=== PATIENT | female | born 1970 | race Hispanic/Latino ===

== ENCOUNTER 2018-02-25 22:39 | Emergency (ER) | payer OTHER ==
[2018-02-25 23:01] VITALS: BMI 26.6
[2018-02-26] MEDS: Sodium Chloride 0.9% 1,000 ML IV STA ×2 (00:20→02:31)
[2018-02-26 00:21] LABS: BASO # 0.1 K/uL (0.0-0.2); BASO % 0.9 % (0.0-2.0); EOS # 0.1 K/uL (0.0-0.7); EOS % 0.9 % (0.0-4.0); HEMOGLOBIN 12.8 g/dL (12.0-16.0); LYMPH % 30.2 % (20.0-40.0); MEAN CELL VOLUME 93.4 fl (81.0-99.0); MEAN CORPUSCULAR HEMOGLOBIN 31.1 pg (27.0-31.0); MEAN CORPUSCULAR HGB CONC 33.3 g/dL (33.0-37.0); MEAN PLATELET VOLUME 8.1 fl (7.2-11.7); MONO # 0.7 K/uL (0.0-0.8); MONO % 6.9 % (0.0-10.0); NEUT # 6.2 K/uL (1.8-7.0); NEUT % 61.1 % (50.0-75.0); NRBC % 0.1 % (0.0-0.0); RBC 4.13 Mil/uL (3.80-5.20); RED CELL DISTRIBUTION WIDTH 13.3 % (11.5-14.5); WHITE BLOOD COUNT 10.1 K/uL (4.8-10.8)
--- NOTE | 2018-02-26 00:29 | ED PDOC ---
HPI: General Adult Time Seen by Provider: 02/25/18 23:07 Chief Complaint (Nursing): Dizziness/Lightheaded Chief Complaint (Provider): dizziness History Per: Patient History/Exam Limitations: no limitations Onset/Duration Of Symptoms: Hrs Current Symptoms Are (Timing): Better Additional Complaint(s): 47 y/o female presents for evaluation of intermittent dizziness x 1 hour. Patient states she woke up to care for her 4 year son who has night terrors, and as she was laying in bed with him she felt a "wave" of dizziness come across her head. Patient states this happened a few times, with associated generalized fatigue. Patient states the dizziness then began being worsened by positional head change. Patient states she started to panic and felt her heart racing. Patient notes symptoms to be less frequent upon arrival to ED. Denies fever, headache, extremity numbness/weakness, vision changes, neck/back pain, chest pain, shortness of breath, abdominal pain, leg pain/swelling. Past Medical History Reviewed: Historical Data, Nursing Documentation, Vital Signs Vital Signs: Last Vital Signs Temp 98.8 F 02/26/18 01:40 Pulse 90 02/26/18 01:40 Resp 13 02/26/18 01:40 BP 122/69 02/26/18 01:40 Pulse Ox 100 02/26/18 02:19 - Medical History PMH: GERD - Surgical History Surgical History: Tonsillectomy, - Family History Family History: States: No Known Family Hx - Living Arrangements Living Arrangements: With Family - Social History Current smoker - smoking cessation education provided: No Alcohol: None Drugs: Denies - Home Medications Home Medications: Ambulatory Orders Medication Instructions Recorded Meclizine [Meclizine*] 25 mg PO TID PRN #21 tab 02/26/18 Ranitidine HCl [Zantac] 150 mg PO DAILY 02/26/18 - Allergies Allergies/Adverse Reactions: Allergies Allergy/AdvReac Type Severity Reaction Status Date / Time No Known Allergies Allergy Verified 02/25/18 23:05 Review of Systems ROS Statement: Except As Marked, All Systems Reviewed And Found Negative Neurological: Positive for: Dizziness Physical Exam - Reviewed Nursing Documentation Reviewed: Yes Vital Signs Reviewed: Yes - Physical Exam Appears: Positive for: Well, Non-toxic, Uncomfortable (anxious, tearful) Head Exam: Positive for: ATRAUMATIC, NORMAL INSPECTION, NORMOCEPHALIC Skin: Positive for: Normal Color Eye Exam: Positive for: Normal appearance ENT: Positive for: Normal ENT Inspection Cardiovascular/Chest: Positive for: Regular Rate, Rhythm Respiratory: Positive for: Normal Breath Sounds Gastrointestinal/Abdominal: Positive for: Normal Exam Back: Positive for: Normal Inspection Extremity: Positive for: Normal ROM Neurologic/Psych: Positive for: 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 Negative for: Motor/Sensory Deficits, Facial Droop - Laboratory Results Result Diagrams: 02/26/18 00:00 02/26/18 00:00 - ECG ECG: Positive for: Viewed By Me (reviewed by ED attending) ECG Rhythm: Positive for: Sinus Rhythm O2 Sat by Pulse Oximetry: 100 - Progress ED Course And Treament: labs, ekg, CT head, IV fluids, PO meclizine EXAM: CT Head Without Intravenous Contrast EXAM DATE/TIME: 02/25/2018 11:43 PM CLINICAL HISTORY: 47 years old, female; Signs and symptoms; Dizziness TECHNIQUE: Axial computed tomography images of the head/brain without intravenous contrast. All CT scans at this facility use one or more dose reduction techniques, viz.: automated exposure control; ma/kV adjustment per patient size (including targeted exams where dose is matched to indication; i.e. head); or iterative reconstruction technique. Coronal and sagittal reformatted images were created and reviewed. COMPARISON: No relevant prior studies available. FINDINGS: Brain: No intracranial hemorrhage. No mass. No definite edema. Ventricles: No hydrocephalus. Bones/joints: No acute fracture. Sinuses: No acute sinusitis. Mastoid air cells: No mastoid effusion. Orbits: Unremarkable as visualized. Soft tissues: Unremarkable. IMPRESSION: No definite acute intracranial abnormality. On re-eval, patient resting comfortably; states dizziness improved. Orthostatics improved after IV hydration Patient ambulating without difficulty or complaints of dizziness. No neuro deficits. Patient educated on findings, discharged with rx Meclizine Advised follow up PMD 2-3 days. Return precautions given Disposition - Clinical Impression Clinical Impression: Dizziness - Patient ED Disposition Is Patient to be Admitted: No Counseled Patient/Family Regarding: Studies Performed, Diagnosis, Need For Followup, Rx Given - Disposition Referrals: Bassem Stanley MD [Primary Care Provider] - Disposition: Routine/Home Disposition Time: 03:40 Condition: IMPROVED Prescriptions: Meclizine [Meclizine*] 25 mg PO TID PRN #21 tab PRN Reason: Dizziness Instructions: Vertigo (a Type of Dizziness), Dizziness, Nonvertigo, (DC) Forms: [employer] (Kyr[place]z)
[2018-02-26 00:59] LABS: ALB/GLOB RATIO 1.2 (1.0-2.1); ALBUMIN 3.9 g/dL (3.5-5.0); ALT/SGPT 33 U/L (9-52); AST/SGOT 32 U/L (14-36); BLOOD UREA NITROGEN 19 mg/dl (7-17); CALCIUM 8.8 mg/dL (8.4-10.2); GFR AFRICAN-AMERICAN > 60; GFR NON-AFRICAN AMERICAN > 60
[2018-02-26 01:40] VITALS: BP 122/69; PULSE 90; RESP 13; TEMP 98.8
[2018-02-26 01:55] VITALS: O2SAT 100
--- NOTE | 2018-02-26 08:50 | CT ---
PROCEDURE: CT HEAD WITHOUT CONTRAST. HISTORY: dizziness COMPARISON: None available. TECHNIQUE: Axial computed tomography images were obtained through the head/brain without intravenous contrast. Radiation dose: Total exam DLP = 822.94 mGy-cm. This CT exam was performed using one or more of the following dose reduction techniques: Automated exposure control, adjustment of the mA and/or kV according to patient size, and/or use of iterative reconstruction technique. FINDINGS: HEMORRHAGE: No intracranial hemorrhage. BRAIN: No mass effect or edema. No atrophy or chronic microvascular ischemic changes. VENTRICLES: Unremarkable. No hydrocephalus. CALVARIUM: Unremarkable. PARANASAL SINUSES: Unremarkable as visualized. No significant inflammatory changes. MASTOID AIR CELLS: Unremarkable as visualized. No inflammatory changes. OTHER FINDINGS: None. IMPRESSION: No acute intracranial abnormalities. No significant findings to account for the clinical presentation. Concordant results (preliminary interpretation) provided by [facility]. Procedure Completed: 00:28 Preliminary ([facility]) Report: Dictated and Authenticated: 00:45 Final Interpretation: 08:48. February 26, 2018.
--- NOTE | 2018-02-27 10:58 | CARD ---
APPROVED REPORT EKG Measurement Heart [id number] <Conclusion> Normal sinus rhythm Nonspecific ST abnormality Abnormal ECG
== END 2018-02-26 04:11 | disposition home or self-care (01) ==
LOC: H.ER 22:39
DX: R42 Dizziness and giddiness (principal); K21.9 Gastro-esophageal reflux disease without esophagitis
CPT/HCPCS: 70450; 80053; 81025; 82948; 84443; 84484; 85025; 93005; 99285; J7030